=== PATIENT | female | born 1975 | race Asian ===

== ENCOUNTER 2020-03-14 16:11 | Emergency (ER) | payer BC ==
[~2020-03-14] VITALS: Ht 162.6 cm; Wt 147.4 kg
[2020-03-14 16:35] VITALS: TEMP 99.4
[2020-03-14 17:54] LABS: PLATELET COUNT 283 K/uL (152-353)
[2020-03-14 17:55] LABS: POTASSIUM 3.4 mmol/L (3.6-5.2); SODIUM 138 mmol/L (136-145)
[2020-03-14 18:45] VITALS: BP 143/93
== END 2020-03-14 19:15 | disposition home or self-care (01) ==
LOC: ED 16:11
PROVIDERS: Emergency Medicine Emergency Medical Services
DX: J40 Bronchitis, not specified as acute or chronic (principal); I10 Essential (primary) hypertension; F17.210 Nicotine dependence, cigarettes, uncomplicated
CPT/HCPCS: 80048; 81000; 81025; 84484; 85027; 93005; 96360; 96365; 96375; 99284; J0696; J3490

== ENCOUNTER → 2020-05-30 | Outpatient (CLI) | payer BC, OTHER | LOC: INF 10:58 | PROVIDERS: ATTEND Internal Medicine | DX: Z23 Encounter for immunization (principal) | CPT/HCPCS: 96372 ==

== ENCOUNTER 2020-06-23 14:10 | Outpatient (CLI) | payer BC, OTHER | END 2020-06-23 23:59 | disposition home or self-care (01) | LOC: INF 14:10 | PROVIDERS: ATTEND Internal Medicine | DX: Z23 Encounter for immunization (principal) | CPT/HCPCS: 96372 ==

== ENCOUNTER 2022-01-26 08:13 | Outpatient (CLI) | payer BC ==
[~2022-01-26] VITALS: Ht 162.6 cm; Wt 151.0 kg
[2022-01-26 08:05] VITALS: BP 156/93; TEMP 98.5
[2022-01-26 08:21] VITALS: BP 153/90; TEMP 98.4
[2022-01-26 09:35] VITALS: BP 148/88; TEMP 98.5
== END 2022-01-26 18:59 | disposition home or self-care (01) ==
LOC: INF 08:13
PROVIDERS: ATTEND Internal Medicine
DX: D64.9 Anemia, unspecified (principal)
CPT/HCPCS: 96365; Q0138

== ENCOUNTER 2022-02-02 12:50 | Outpatient (CLI) | payer BC | END 2022-02-02 20:34 | disposition home or self-care (01) | LOC: MAMMO 12:50 | PROVIDERS: ATTEND Nurse Practitioner Family | DX: Z12.31 Encounter for screening mammogram for malignant neoplasm of breast (principal) ==